=== PATIENT | male | born 1980 ===

== ENCOUNTER 2017-05-06 20:54 | Emergency (ER) | payer MEDICAID, OTHER ==
[2017-05-06] MEDS ORDERED: Albuterol/Ipratropium NEB.SOL* Albuterol 2.5 MG/Ipratropium 0.5 MG 3 ML INH ONE (21:05)
[2017-05-06] MEDS ORDERED: predniSONE TAB* 20 MG PO ONE (21:05)
[2017-05-06] MEDS ORDERED: Amoxicillin/Clavulanate TAB* 875 MG PO ONE (21:05)
--- NOTE | 2017-05-06 21:05 | UC ---
Respiratory Complaint HPI - HPI Summary HPI Summary: 36 YEAR OLD MALE PRESENTS WITH COMPLAINS OF COUGH, NASAL CONGESTION AND SORE THROAT - History of Current Complaint Chief Complaint: UCRespiratory Stated Complaint: URI Time Seen by Provider: 05/06/17 21:03 Hx Obtained From: Patient Onset/Duration: Sudden Onset Severity Initially: Moderate Severity Currently: Moderate Pain Scale Used: 0-10 Numeric - 5 - Allergies/Home Medications Allergies/Adverse Reactions: Allergies Allergy/AdvReac Type Severity Reaction Status Date / Time owen inhibitors Allergy Coughing Uncoded 05/06/17 20:57 Home Medications: Home Medications Albuterol HFA INHALER* [Ventolin HFA Inhaler*] 2 puff INH Q4H PRN 05/06/17 [ History Confirmed 05/06/17] Amlodipine Besylate [Norvasc 10 mg tab] 10 mg PO DAILY 05/06/17 [History Confirmed 05/06/17] Losartan Potassium 100 mg PO DAILY 05/06/17 [History Confirmed 05/06/17] Multiple Vitamin [Multivitamins] 1 cap PO DAILY 05/06/17 [History Confirmed 11/17] Naproxen [Naprosyn 500 mg] 250 mg PO BID PRN 05/06/17 [History Confirmed ] Phentermine HCl 37.5 mg PO DAILY 05/06/17 [History Confirmed 05/06/17] Topiramate [Topamax 50 mg tab] 50 mg PO BEDTIME 05/06/17 [History Confirmed 11/17] PMH/Surg Hx/FS Hx/Imm Hx Previously Healthy: Yes - Surgical History Surgical History: None - Social History Alcohol Use: None Substance Use Type: None Smoking Status (MU): Never Smoked Tobacco Review of Systems Constitutional: Negative Skin: Negative Eyes: Negative ENT: Sore Throat, Nasal Discharge, Sinus Congestion, Sinus Pain/Tenderness Respiratory: Cough Cardiovascular: Negative Gastrointestinal: Negative Genitourinary: Negative Motor: Negative Neurovascular: Negative Musculoskeletal: Negative Neurological: Negative Psychological: Negative All Other Systems Reviewed And Are Negative: Yes Physical Exam Triage Information Reviewed: Yes Vital Signs: Initial Vital Signs Temp 36.9 C 05/06/17 20:58 Pulse 81 05/06/17 20:58 Resp 22 05/06/17 20:58 Pulse Ox 100 05/06/17 20:58 Vital Signs Reviewed: Yes Eye Exam: Normal ENT: Positive: Nasal congestion, Nasal drainage Dental Exam: Normal Neck exam: Normal Neck: Positive: 1 Respiratory: Positive: Rhonchi, Wheezing Cardiovascular Exam: Normal Abdominal Exam: Normal Musculoskeletal Exam: Normal Neurological Exam: Normal Psychological Exam: Normal Skin Exam: Normal UC Diagnostic Evaluation - Laboratory O2 Sat by Pulse Oximetry: 100 Respiratory Course/Dx - Differential Dx/Diagnosis Provider Diagnoses: COUGH. PHARYNGITIS. WHEEZING Discharge - Discharge Plan Condition: Stable Disposition: HOME Prescriptions: Amoxicillin/Clavulanate TAB* [Augmentin TAB 875*] 875 mg PO BID #20 tab Methylprednisolone [Medrol Dosepak 4 MG*] 4 mg PO .SEE [employer] INSTRUCTION #21 tab guaiFENesin/CODIEN 100MG-10MG* [Robitussin AC 100Mg-10Mg*] 5 ml PO Q8H PRN #120 udc MDD 15 ML PRN Reason: Cough Patient Education Materials: Bronchospasm (ED), Acute Cough (ED) Referrals: No Primary Care Phys,NOPCP [Primary Care Provider] -
[2017-05-06] MEDS ORDERED: GuaiFENesin DM* 5 ML UDC PO ONE (21:08)
[2017-05-06] MEDS ORDERED: guaiFENesin LIQ* 100 MG/5 ML UDC PO ONE (21:28)
== END 2017-05-06 21:54 | disposition home or self-care (01) ==
LOC: UCEAST 20:54
DX: R05 Cough (principal); J02.9 Acute pharyngitis, unspecified; R06.2 Wheezing
CPT/HCPCS: 99203; A9270-GY; G0463; J7512